=== PATIENT | female | born 1965 | race Two or more races ===

== ENCOUNTER 2024-01-13 15:48 | Inpatient (IN) | payer MEDICAID, OTHER ==
[~2024-01-13] VITALS: Ht 154.9 cm; Wt 54.6 kg
[2024-01-13 16:40] VITALS: RESP 26; O2SAT 90
[2024-01-13] MEDS: SODIUM CHLORIDE 0.9% 1,000 ML IV ONE (17:23)
[2024-01-13] MEDS: cefTRIAXone 1GM/50ML D5W 50 ML IV ONE (18:32)
[2024-01-13 18:35] LABS: Hemoglobin 9.5 g/dL (12.2-16.2)
[2024-01-13 18:38] LABS: Hematocrit 29.5 % (36.0-46.0); Mean Corpuscular Hemoglobin 26.8 pg (28.0-32.0); Mean Corpuscular Hgb Conc. 32.2 g/dL (32.0-36.0); Red Blood Cells 3.56 10^6/uL (4.0-5.20); White Blood Cell 17.8 10^3/uL (4.4-10.8)
[2024-01-13 18:41] LABS: Basophils % (manual) 0 (0.0-2.0); Blast Cells 0; Eosinophils % (manual) 0 (0-7); Metamyelocytes % 0; Monocytes % (manual) 0 (0-12); Myelocytes % 0; Promyelocytes % 0; Reactive Lymphocytes 0
[2024-01-13] MEDS: ONDANSETRON HCL 4 MG/2 ML VIAL IV ONE (18:41)
[2024-01-13 18:56] LABS: INR 1.08 (0.9-1.15); Partial Thromboplastin Time 30.7 SEC (24.5-34.5); Prothrombin Time 11.4 sec (9.3-11.8)
[2024-01-13 19:06] LABS: Alkaline Phosphatase 89 U/L (46-116); Anion Gap 10 (5-15); BUN/Creatinine Ratio 22.3 (10.0-20.0); Blood Urea Nitrogen 39 mg/dL (9-23); Calcium 10.6 mg/dL (8.7-10.4); Carbon Dioxide 25 mmol/L (20-30); Chloride 95 mmol/L (98-107); Glucose 104 mg/dL (74-106); Magnesium 1.7 mg/dL (1.6-2.6); Potassium 5.5 mmol/L (3.5-5.1); Sodium 130 mmol/L (136-145)
[2024-01-13 19:07] LABS: Albumin 3.8 g/dL (3.2-4.8); Aspartate Aminotransferase 20 U/L (13-40); Bilirubin, Total 0.3 mg/dL (0.2-1.0); Total Protein 8.4 g/dL (5.7-8.2)
[2024-01-13 19:11] LABS: Band Neutrophils % (manual) 8; Lymphocytes % (manual) 8 (10.0-50.0)
[2024-01-13 19:12] LABS: Platelet Estimate Adequate
[2024-01-13 19:18] LABS: Alanine Aminotransferase < 9 U/L (7-40)
[2024-01-13 19:30] VITALS: PULSE 132; RESP 36; O2SAT 94
[2024-01-13] MEDS: AZITHROMYCIN 500MG/ 250ML 250 ML IV ONE (20:24)
[2024-01-13] MEDS ORDERED: ALBUTEROL SULF 2.5 MG/0.5ML(0.5%) NEB SOLN NEB PRN (20:45)
[2024-01-13] MEDS ORDERED: DOCUSATE SOD 100 MG CAP PO PRN (20:45)
[2024-01-13] MEDS ORDERED: VANCOMYCIN PER PHARMACY 0 MG IV SCH (20:45)
[2024-01-13] MEDS: SODIUM CHLORIDE 0.9% 1,000 ML IV SCH (21:00)
[2024-01-13] MEDS ORDERED: METOCLOPRAMIDE HCL 5MG/ml INJ 2ml VIAL IV PRN (21:00)
[2024-01-13 21:03] VITALS: BP 116/80; PULSE 125; RESP 22; O2SAT 95
[2024-01-13] MEDS: METOCLOPRAMIDE HCL 5MG/ml INJ 2ml VIAL IV ONE (21:18)
[2024-01-13] MEDS: ASPirin 81 mg TAB PO ONE (21:44)
[2024-01-13] MEDS: SODIUM ZIRCONIUM CYCL 10 GM PAK PO ONE (21:45)
[2024-01-13] MEDS: FAMOTIDINE (10MG/ML) 2ML VL IV SCH (21:59)
[2024-01-13] MEDS ORDERED: NITROGLYCERIN 0.4 MG SL TAB SL PRN (23:00)
[2024-01-13] MEDS ORDERED: MORPHINE SULFATE INJ 2 MG/ml SYRG IV PRN (23:00)
[2024-01-13] MEDS: VANCOMYCIN 1GM/200ML 200 ML IV ONE (23:30)
[2024-01-14 06:08] LABS: Basophils # (auto) 0 10 ^3/uL (0-0.2); Basophils % (auto) 0.3 % (0.0-2.0); Eosinophils # (auto) 0 10 ^3/uL (0-0.8); Eosinophils % (auto) 0.2 % (0.0-7.0); Hemoglobin 7.5 g/dL (12.2-16.2); Monocytes # (auto) 0.5 10 ^3/uL (0-1.3); White Blood Cell 13.2 10^3/uL (4.4-10.8)
[2024-01-14 06:10] LABS: Hematocrit 23.1 % (36.0-46.0); Lymphocytes # (auto) 0.6 10 ^3/uL (0.4-5.4); Lymphocytes % (auto) 4.7 % (10.0-50.0); Mean Corpuscular Hemoglobin 27.1 pg (28.0-32.0); Mean Corpuscular Hgb Conc. 32.5 g/dL (32.0-36.0); Mean Corpuscular Volume 83.4 fL (80.0-100.0); Monocytes % (auto) 3.9 % (0.0-12.0); Neutrophils % (auto) 90.9 % (37.0-80.0); Red Blood Cells 2.77 10^6/uL (4.0-5.20); Red Cell Distribution Width 24.2 % (11.8-14.3)
[2024-01-14] MEDS: LEVOTHYROXINE SODIUM 88 MCG TAB PO SCH (06:14)
[2024-01-14 06:23] LABS: Alkaline Phosphatase 67 U/L (46-116); Anion Gap 9 (5-15); Aspartate Aminotransferase 16 U/L (13-40); BUN/Creatinine Ratio 26.3 (10.0-20.0); Bilirubin, Total 0.2 mg/dL (0.2-1.0); Calcium 9.1 mg/dL (8.7-10.4); Carbon Dioxide 24 mmol/L (20-30); Chloride 97 mmol/L (98-107); Glucose 105 mg/dL (74-106); Potassium 4.8 mmol/L (3.5-5.1); Sodium 130 mmol/L (136-145); Total Protein 6.9 g/dL (5.7-8.2)
[2024-01-14 06:24] LABS: Alanine Aminotransferase < 9 U/L (7-40); Blood Urea Nitrogen 50 mg/dL (9-23)
[2024-01-14] MEDS: SODIUM CHLORIDE 0.9% 500 ML IV ONE (07:30)
[2024-01-14 07:45] VITALS: PULSE 93; RESP 17; O2SAT 100
[2024-01-14 08:01] LABS: Urine Bacteria MOD /hpf (None Seen); Urine Blood TRACE /uL (Negative); Urine Clarity Ex.Turbid (Clear); Urine Color Light-Orange (Yellow); Urine Mucus FEW (None Seen); Urine Protein, UAD 2+ (Negative); Urine Specific Gravity 1.024 (1.001-1.035); Urine Urobilinogen Normal (Negative); Urine WBC 55 /hpf (0 - 5); Urine pH 7.5 (5.0-9.0)
[2024-01-14 08:59] LABS: Amphetamine Screen, Urine Neg (NEGATIVE); Barbiturate Scree,Urine Neg (NEGATIVE); Benzodiazephine Screen, Urine Neg (NEGATIVE); Cannabinoid Screen, Urine Neg (NEGATIVE); Cocaine Screen, Urine Neg (NEGATIVE); Opiate Scree,Urine Pos (NEGATIVE); Phencyclidine Screen, Urine Neg (NEGATIVE)
[2024-01-14 09:00] LABS: Triglycerides 213 mg/dL (< 150)
[2024-01-14 09:01] LABS: LDL Cholesterol 62 mg/dL (< 100)
[2024-01-14 09:02] LABS: Cholesterol 128 mg/dL (< 200); HDL Cholesterol 26 mg/dL (40-59)
[2024-01-14] MEDS: ASPirin 81 mg TAB PO SCH (10:22)
[2024-01-14] MEDS: MULTIPLE VITAMIN TAB PO SCH (10:22)
[2024-01-14] MEDS: AZITHROMYCIN 500MG/ 250ML 250 ML IV SCH (10:23)
[2024-01-14 10:30] VITALS: O2SAT 96
[2024-01-14] MEDS: LINEZOLID 600MG/300ML 300 ML IV SCH (13:09)
[2024-01-14 13:39] LABS: Base Excess -1.3 mmol/L (-2.0-2.0)
[2024-01-14] MEDS: CEFEPIME 1GM/ 50ML 50 ML IV SCH (15:14)
[2024-01-14 19:27] VITALS: O2SAT 94
[2024-01-14 19:30] VITALS: PULSE 95; RESP 21; O2SAT 93
[2024-01-15] VITALS (25 sets, daily range): BP systolic 92–121; BP diastolic 61–72; PULSE 89–108; RESP 12–24; TEMP 98.4–99.6; O2SAT 91–98
[2024-01-15 00:42] LABS: COVID19 ANTIGEN SOFIA FIA NEGATIVE (NEGATIVE); Rapid Influenza A Negative (Negative); Rapid Influenza B Negative (Negative)
[2024-01-15 05:10] LABS: Basophils # (auto) 0 10 ^3/uL (0-0.2); Eosinophils # (auto) 0.2 10 ^3/uL (0-0.8); Hematocrit 22.6 % (36.0-46.0); Hemoglobin 7.2 g/dL (12.2-16.2); Lymphocytes # (auto) 0.3 10 ^3/uL (0.4-5.4); Monocytes # (auto) 0.4 10 ^3/uL (0-1.3)
[2024-01-15 05:13] LABS: Basophils % (auto) 0.3 % (0.0-2.0); Eosinophils % (auto) 3.6 % (0.0-7.0); Lymphocytes % (auto) 5.3 % (10.0-50.0); Mean Corpuscular Hemoglobin 26.8 pg (28.0-32.0); Mean Corpuscular Hgb Conc. 32.1 g/dL (32.0-36.0); Mean Corpuscular Volume 83.7 fL (80.0-100.0); Monocytes % (auto) 6.8 % (0.0-12.0); Neutrophils # (auto) 5.5 10 ^3/uL (1.6-8.6); Red Cell Distribution Width 23.7 % (11.8-14.3); White Blood Cell 6.5 10^3/uL (4.4-10.8)
[2024-01-15 05:18] LABS: Chloride 103 mmol/L (98-107); Potassium 4.4 mmol/L (3.5-5.1); Sodium 134 mmol/L (136-145)
[2024-01-15 05:19] LABS: Anion Gap 5 (5-15); Carbon Dioxide 26 mmol/L (20-30)
[2024-01-15 05:20] LABS: Calcium 8.9 mg/dL (8.7-10.4)
[2024-01-15 05:24] LABS: BUN/Creatinine Ratio 31.7 (10.0-20.0); Glucose 85 mg/dL (74-106)
[2024-01-15 05:25] LABS: Blood Urea Nitrogen 40 mg/dL (9-23)
[2024-01-15] MEDS ORDERED: GABA-1308 PO (11:32)
[2024-01-15] MEDS ORDERED: LEVO88CA3 PO (11:39)
[2024-01-15] MEDS ORDERED: DEXA4TAB PO (11:39)
[2024-01-15] MEDS ORDERED: DOCU-265 PO (11:39)
[2024-01-15] MEDS ORDERED: HYDR-4902 PO (11:39)
[2024-01-15] MEDS ORDERED: ONDA-155 PO (11:39)
[2024-01-15] MEDS ORDERED: AMLO1TAB22 PO (11:39)
[2024-01-15] MEDS ORDERED: LISI40TA16 PO (11:39)
[2024-01-15] MEDS ORDERED: SENN-58 PO (11:39)
[2024-01-15] MEDS ORDERED: FAMO-12 PO (11:39)
[2024-01-15] MEDS ORDERED: POM (12:24)
[2024-01-15 18:24] LABS: Body Fluid Polymorphonuclear 28 % (0-25); Body Fluid Red Blood Cells 3545 CUMM (0-2000); Body Fluid White Blood Cells 193 CUMM (0-200); Body Fluid pH 8
[2024-01-15] MEDS: HYDROcodone-ACET 5/325MG TAB PO PRN (21:15)
[2024-01-16] VITALS (12 sets, daily range): BP systolic 98–117; BP diastolic 49–77; PULSE 68–105; RESP 16–22; TEMP 97.3–98.8; O2SAT 92–100
[2024-01-16 06:48] LABS: Basophils # (auto) 0 10 ^3/uL (0-0.2); Eosinophils # (auto) 0.2 10 ^3/uL (0-0.8); Hemoglobin 7.5 g/dL (12.2-16.2); Neutrophils # (auto) 3.8 10 ^3/uL (1.6-8.6); White Blood Cell 4.9 10^3/uL (4.4-10.8)
[2024-01-16 06:52] LABS: Basophils % (auto) 0.4 % (0.0-2.0); Eosinophils % (auto) 3.5 % (0.0-7.0); Hematocrit 22.5 % (36.0-46.0); Lymphocytes # (auto) 0.4 10 ^3/uL (0.4-5.4); Lymphocytes % (auto) 7.7 % (10.0-50.0); Mean Corpuscular Hemoglobin 27.9 pg (28.0-32.0); Mean Corpuscular Hgb Conc. 33.2 g/dL (32.0-36.0); Monocytes # (auto) 0.5 10 ^3/uL (0-1.3); Neutrophils % (auto) 77.4 % (37.0-80.0); Nucleated Red Blood Cells % 0.1 %; Red Blood Cells 2.68 10^6/uL (4.0-5.20)
[2024-01-16 06:56] LABS: Anion Gap 4 (5-15); Calcium 8.9 mg/dL (8.5-10.1); Carbon Dioxide 27 mmol/L (20-30); Chloride 105 mmol/L (98-107); Potassium 4.2 mmol/L (3.5-5.1); Sodium 136 mmol/L (136-145)
[2024-01-16 07:02] LABS: BUN/Creatinine Ratio 28.4 (10.0-20.0); Glucose 87 mg/dL (74-106)
[2024-01-16 07:08] LABS: Blood Urea Nitrogen 25 mg/dL (9-23)
[2024-01-16] MEDS ORDERED: CEFEPIME 1GM/ 50ML 50 ML IV SCH (10:45)
[2024-01-16] MEDS: CEFEPIME 1GM/ 50ML 50 ML IV SCH (12:47)
[2024-01-16] MEDS: ACETAMINOPHEN 325 MG TAB PO PRN (22:59)
[2024-01-17] VITALS (11 sets, daily range): BP systolic 103–117; BP diastolic 66–79; PULSE 82–94; RESP 16–20; TEMP 97.9–98.6; O2SAT 90–99
[2024-01-18] VITALS (11 sets, daily range): BP systolic 108–128; BP diastolic 72–86; PULSE 52–97; RESP 16–26; TEMP 97.7–98.4; O2SAT 92–100
[2024-01-18] MEDS: OMNIPAQUE 12mg/ml 500ml ORAL SOLUTION PO ONE (06:48)
[2024-01-18] MEDS: IOHEXOL 300 MG/ML 100ML BOTTLE IJ ONE (06:48)
[2024-01-18] MEDS: ONDANSETRON HCL 4 MG/2 ML VIAL IV PRN (14:58)
[2024-01-18 18:36] LABS: Body Fluid Polymorphonuclear 82 % (0-25); Body Fluid Red Blood Cells 278 CUMM (0-2000); Body Fluid White Blood Cells 168 CUMM (0-200)
[2024-01-19] VITALS (8 sets, daily range): BP systolic 103–120; BP diastolic 72–81; PULSE 78–91; RESP 18–19; TEMP 37; O2SAT 94–100
[2024-01-19 06:17] LABS: Basophils # (auto) 0 10 ^3/uL (0-0.2); Eosinophils # (auto) 0.2 10 ^3/uL (0-0.8); Lymphocytes # (auto) 0.7 10 ^3/uL (0.4-5.4); Monocytes # (auto) 0.6 10 ^3/uL (0-1.3); Monocytes % (auto) 8.8 % (0.0-12.0)
[2024-01-19 06:19] LABS: Basophils % (auto) 0.4 % (0.0-2.0); Eosinophils % (auto) 3.4 % (0.0-7.0); Hemoglobin 8.7 g/dL (12.2-16.2); Lymphocytes % (auto) 9.5 % (10.0-50.0); Mean Corpuscular Hemoglobin 27.3 pg (28.0-32.0); Mean Corpuscular Hgb Conc. 33.3 g/dL (32.0-36.0); Mean Corpuscular Volume 82.2 fL (80.0-100.0); Neutrophils # (auto) 5.5 10 ^3/uL (1.6-8.6); Neutrophils % (auto) 77.9 % (37.0-80.0); Nucleated Red Blood Cells % 0.1 %; Red Blood Cells 3.17 10^6/uL (4.0-5.20); White Blood Cell 7.1 10^3/uL (4.4-10.8)
[2024-01-19 06:21] LABS: Red Cell Distribution Width 23.8 % (11.8-14.3)
[2024-01-19 06:27] LABS: Anion Gap 8 (5-15); Carbon Dioxide 24 mmol/L (20-30); Chloride 103 mmol/L (98-107); Potassium 4.8 mmol/L (3.5-5.1); Sodium 135 mmol/L (136-145)
[2024-01-19 06:28] LABS: Calcium 9.2 mg/dL (8.7-10.4)
[2024-01-19 06:33] LABS: BUN/Creatinine Ratio 15.5 (10.0-20.0); Blood Urea Nitrogen 13 mg/dL (9-23); Glucose 74 mg/dL (74-106)
[2024-01-19 13:07] LABS: Protein, Body Fluid 5.7 g/dL (.)
== END 2024-01-19 17:00 | disposition home or self-care (01) | DRG 136 ==
LOC: EDBD 15:48 → ER 15:54 → TELE 22:52 → DOU IN ICU 01-14 12:45 → TELE-WESTW 01-16 00:35
PROVIDERS: ADMIT Internal Medicine Pulmonary Disease; ATTEND Internal Medicine Pulmonary Disease
PROC: 0W9G3ZZ Drainage of Peritoneal Cavity, Percutaneous Approach (ICD-10-PCS; 2024-01-15)
PROC: 0W993ZZ Drainage of Right Pleural Cavity, Percutaneous Approach (ICD-10-PCS; principal; 2024-01-18)
DX: C78.00 Secondary malignant neoplasm of unspecified lung (principal); J96.21 Acute and chronic respiratory failure with hypoxia; J15.69 Pneumonia due to other Gram-negative bacteria; I27.0 Primary pulmonary hypertension; R18.8 Other ascites; J15.9 Unspecified bacterial pneumonia; N17.9 Acute kidney failure, unspecified; J91.0 Malignant pleural effusion; C56.1 Malignant neoplasm of right ovary; D64.9 Anemia, unspecified; Z20.822 Contact with and (suspected) exposure to COVID-19; D72.829 Elevated white blood cell count, unspecified; R79.89 Other specified abnormal findings of blood chemistry; E03.9 Hypothyroidism, unspecified; N39.0 Urinary tract infection, site not specified; Z88.0 Allergy status to penicillin; Z79.899 Other long term (current) drug therapy; Z98.51 Tubal ligation status; Z82.49 Family history of ischemic heart disease and other diseases of the circulatory system
CPT/HCPCS: 32555; 36415; 36600; 49083; 71045; 71250; 74177; 76604; 76775; 76942; 78582; 80048; 80053; 80061; 80202; 80307; 81001; 82805; 83036; 83735; 83880; 83986; 84439; 84443; 84484; 85007; 85025; 85027; 85379; 85610; 85730; 86850; 86900; 86901; 87040; 87081; 87086; 87205; 87426; 87804; 89051; 93005; 93306; 93970; 97110; 97116; 97163; 97530; G0378; J2405; J3490